=== PATIENT | female | born 1970 | race Two or more races ===

== ENCOUNTER 2017-01-28 18:38 | Emergency (ER) | payer SELFPAY ==
[2017-01-28 19:00] LABS: SPECIFIC GRAVITY 1.015 (1.001-1.030); URINE BILIRUBIN NEGATIVE (NEGATIVE); URINE BLOOD NEGATIVE (NEGATIVE); URINE GLUCOSE (UA) 3+ (NEGATIVE); URINE LEUKOCYTE ESTERASE 1+ (NEGATIVE); URINE NITRITE NEGATIVE (NEGATIVE); URINE PROTEIN NEGATIVE (NEGATIVE); URINE UROBILINOGEN NORMAL (0-1 mg/dl)
[2017-01-28 19:04] LABS: URINE APPEARANCE SL CLOUDY; URINE COLOR YELLOW
[2017-01-28 19:18] LABS: URINE BACTERIA RARE
[2017-01-28] MEDS ORDERED: CEPHALEXIN 500 MG CAPSULE ONE (20:20)
== END 2017-01-28 20:50 | disposition home or self-care (01) ==
LOC: ED 18:38
DX: N39.0 Urinary tract infection, site not specified (principal); M54.5 Low back pain; J45.909 Unspecified asthma, uncomplicated; E11.9 Type 2 diabetes mellitus without complications; Z79.84 Long term (current) use of oral hypoglycemic drugs; Z86.19 Personal history of other infectious and parasitic diseases
CPT/HCPCS: 87086; 81001; 99283 ×2; A9270